=== PATIENT | male | born 1970 | race American Indian/Alaskan Native ===

== ENCOUNTER 2018-12-01 16:24 | Emergency (ER) | payer OTHER ==
--- NOTE | 2018-12-01 16:41 | Event Note ---
ED Screening Note Date of service: 12/01/18 Time: 16:38 ED Screening Note: 48 y/o male comes in for chest pain. Was admitted last year for chest pain. Never followed up a specialist. Did not discuss with his pcp. Hx/o dm, This initial assessment/diagnostic orders/clinical plan/treatment(s) is/are subject to change based on patients health status, clinical progression and re- assessment by fellow clinical providers in the ED. Further treatment and workup at subsequent clinical providers discretion. Patient/guardian urged not to elope from the ED as their condition may be serious if not clinically assessed and managed. Initial orders include:
[2018-12-01 17:06] LABS: Basophils # (Auto) 0.1 K/mm3 (0.0-0.1); Basophils % (Auto) 0.5 % (0.0-1.8); Eosinophils # (Auto) 0.1 K/mm3 (0.0-0.4); Hematocrit 44.5 % (35.5-45.6); Hemoglobin 14.8 gm/dl (11.8-15.2); Lymphocytes # (Auto) 3.9 K/mm3 (1.2-5.4); Lymphocytes % (Auto) 36.3 % (13.4-35.0); Mean Corpuscular HGB Conc 33 % (32-34); Mean Corpuscular Volume 85 fl (84-94); Monocytes # (Auto) 0.8 K/mm3 (0.0-0.8); Monocytes % (Auto) 7.7 % (0.0-7.3); Platelet Count 337 K/mm3 (140-440); Red Blood Count 5.26 M/mm3 (3.65-5.03); Red Cell Distribution Width 13.2 % (13.2-15.2)
[2018-12-01 17:27] LABS: Alanine Aminotransferase 15 units/L (7-56); Albumin 4.5 g/dL (3.9-5); BUN/Creatinine Ratio 17; Blood Urea Nitrogen 20 mg/dL (9-20); Hemolysis Index 6
--- NOTE | 2018-12-01 17:29 | XRay Report ---
PROCEDURE: XR CHEST ROUTINE 2V TECHNIQUE: PA and lateral chest radiographs were obtained. HISTORY: chest pain. COMPARISONS: None. FINDINGS: Heart: Normal. Mediastinum/Vessels: Normal. Lungs/Pleural space: Normal. Bony thorax: No acute osseous abnormality. IMPRESSION: Normal examination. This document is electronically signed by Shai Heller MD., December 01 2018 05:26:57 PM ET
[2018-12-01] MEDS ORDERED: LIDOCAINE VISCOUS 2% PO ONE (19:46)
[2018-12-01] MEDS ORDERED: ALUM-MAG HYDROX-SIMETH 200-200-20MG/5ML PO ONE (19:46)
--- NOTE | 2018-12-01 20:11 | Emergency Department Report ---
ED Chest Pain HPI - General Chief Complaint: Chest Pain Stated Complaint: CHEST PAIN Time Seen by Provider: 12/01/18 19:01 Source: patient Mode of arrival: Ambulatory Limitations: No Limitations - History of Present Illness Initial Comments: Patient is a 48-year-old male presents to the emergency room with complaints of left-sided chest pain that began a few months ago. He describes the pain as a burning and a pressure. He denies any nausea, vomiting, shortness of breath, lower extremity edema, recent travel by car or plane, recent surgery, recent immobilization. He states he has had acid reflux in the past. He states it is worse when he lays down and when bending over. He states it is also worse with lifting. He states he has been doing more pushups and did approximately 100 pushups yesterday morning. He states he stopped smoking cigarettes in 2008 occasionally smokes cigars occasionally drinks alcohol he denies any drug use. He states he had a normal stress test and echo in December 2017. Past medical history of diabetes. He denies any cardiac history. - Related Data Previous Rx's Medication Instructions Recorded Last Taken Type Famotidine [Pepcid] 20 mg PO BID #60 tablet 12/01/18 Unknown Rx Naproxen [EC-Naprosyn] 500 mg PO BID PRN #20 tablet. 12/01/18 Unknown Rx Allergies Allergy/AdvReac Type Severity Reaction Status Date / Time No Known Allergies Allergy Unverified 12/01/18 16:25 Heart Score - HEART Score History: Slightly suspicious EKG: Normal Age: < 45 Risk factors: 1-2 risk factors Troponin: < normal limit HEART Score: 1 ED Review of Systems ROS: Stated complaint: CHEST PAIN Other details as noted in HPI Comment: All other systems reviewed and negative ED Past Medical Hx - Past Medical History Hx Diabetes: Yes - Surgical History Past Surgical History?: No - Social History Smoking Status: Never Smoker Substance Use Type: Alcohol - Medications Home Medications: Home Medications Medication Instructions Recorded Confirmed Last Taken Type Famotidine [Pepcid] 20 mg PO BID #60 tablet 12/01/18 Unknown Rx Naproxen [EC-Naprosyn] 500 mg PO BID PRN #20 tablet. 12/01/18 Unknown Rx ED Physical Exam - General Limitations: No Limitations General appearance: alert, in no apparent distress - Head Head exam: Present: atraumatic, normocephalic - Eye Eye exam: Present: normal appearance, PERRL - ENT ENT exam: Present: mucous membranes moist - Respiratory Respiratory exam: Present: normal lung sounds bilaterally, chest wall tenderness (reproducible left anterior chest wall TTP). Absent: respiratory distress, wheezes, rales, rhonchi, stridor, accessory muscle use, decreased breath sounds, prolonged expiratory - Cardiovascular Cardiovascular Exam: Present: regular rate, normal rhythm, normal heart sounds. Absent: systolic murmur, diastolic murmur, rubs, gallop - Neurological Exam Neurological exam: Present: alert, oriented X3 - Psychiatric Psychiatric exam: Present: normal affect, normal mood - Skin Skin exam: Present: warm, dry, intact ED Course Vital Signs 12/01/18 12/01/18 16:37 21:03 Temperature 98.4 F 97.6 F Pulse Rate 100 H 76 Respiratory 20 15 Rate Blood Pressure 136/86 Blood Pressure 117/89 [Left] O2 Sat by Pulse 98 95 Oximetry MIKEY score - Mikey Score Age > 65: (0) No Aspirin use within the Past 7 Days: (0) No 3 or more CAD Risk Factors: (0) No 2 or more Angina events in past 24 hrs: (0) No Known CAD with more than 50% Stenosis: (0) No Elevated Cardiac Markers: (0) No ST Deviation Greater than 0.5mm: (0) No MKIEY Score: 0 ED Medical Decision Making - Lab Data Result diagrams: 12/01/18 16:50 12/01/18 16:50 Lab Results 12/01/18 12/01/18 12/01/18 Range/Units 16:50 16:50 20:00 WBC 10.7 (4.5-11.0) K/mm3 RBC 5.26 H (3.65-5.03) M/mm3 Hgb 14.8 (11.8-15.2) gm/dl Hct 44.5 (35.5-45.6) % MCV 85 (84-94) fl MCH 28 (28-32) pg MCHC 33 (32-34) % RDW 13.2 (13.2-15.2) % Plt Count 337 (140-440) K/mm3 Lymph % (Auto) 36.3 H (13.4-35.0) % Coles % (Auto) 7.7 H (0.0-7.3) % Eos % (Auto) 1.0 (0.0-4.3) % Baso % (Auto) 0.5 (0.0-1.8) % Lymph # 3.9 (1.2-5.4) K/mm3 Coles # 0.8 (0.0-0.8) K/mm3 Eos # 0.1 (0.0-0.4) K/mm3 Baso # 0.1 (0.0-0.1) K/mm3 Seg Neutrophils % 54.5 (40.0-70.0) % Seg Neutrophils # 5.8 (1.8-7.7) K/mm3 D-Dimer 184.25 (0-234) ng/mlDDU Sodium 139 (137-145) mmol/L Potassium 3.9 (3.6-5.0) mmol/L Chloride 99.8 (98-107) mmol/L Carbon Dioxide 27 (22-30) mmol/L Anion Gap 16 mmol/L BUN 20 (9-20) mg/dL Creatinine 1.2 (0.8-1.5) mg/dL Estimated GFR > 60 ml/min BUN/Creatinine Ratio 17 % Glucose 107 H (75-100) mg/dL Calcium 9.0 (8.4-10.2) mg/dL Total Bilirubin 0.40 (0.1-1.2) mg/dL AST 14 (5-40) units/L ALT 15 (7-56) units/L Alkaline Phosphatase 69 (35-129) units/L Troponin T < 0.010 (0.00-0.029) ng/mL Total Protein 7.9 (6.3-8.2) g/dL Albumin 4.5 (3.9-5) g/dL Albumin/Globulin Ratio 1.3 % 12/01/18 Range/Units 20:00 WBC (4.5-11.0) K/mm3 RBC (3.65-5.03) M/mm3 Hgb (11.8-15.2) gm/dl Hct (35.5-45.6) % MCV (84-94) fl MCH (28-32) pg MCHC (32-34) % RDW (13.2-15.2) % Plt Count (140-440) K/mm3 Lymph % (Auto) (13.4-35.0) % Coles % (Auto) (0.0-7.3) % Eos % (Auto) (0.0-4.3) % Baso % (Auto) (0.0-1.8) % Lymph # (1.2-5.4) K/mm3 Coles # (0.0-0.8) K/mm3 Eos # (0.0-0.4) K/mm3 Baso # (0.0-0.1) K/mm3 Seg Neutrophils % (40.0-70.0) % Seg Neutrophils # (1.8-7.7) K/mm3 D-Dimer (0-234) ng/mlDDU Sodium (137-145) mmol/L Potassium (3.6-5.0) mmol/L Chloride (98-107) mmol/L Carbon Dioxide (22-30) mmol/L Anion Gap mmol/L BUN (9-20) mg/dL Creatinine (0.8-1.5) mg/dL Estimated GFR ml/min BUN/Creatinine Ratio % Glucose (75-100) mg/dL Calcium (8.4-10.2) mg/dL Total Bilirubin (0.1-1.2) mg/dL AST (5-40) units/L ALT (7-56) units/L Alkaline Phosphatase (35-129) units/L Troponin T < 0.010 (0.00-0.029) ng/mL Total Protein (6.3-8.2) g/dL Albumin (3.9-5) g/dL Albumin/Globulin Ratio % Vital Signs 12/01/18 12/01/18 16:37 21:03 Temperature 98.4 F 97.6 F Pulse Rate 100 H 76 Respiratory 20 15 Rate Blood Pressure 136/86 Blood Pressure 117/89 [Left] O2 Sat by Pulse 98 95 Oximetry - EKG Data EKG shows normal: sinus rhythm, axis, intervals, QRS complexes, ST-T waves Rate: tachycardia (101) - Radiology Data Radiology results: report reviewed - Medical Decision Making Patient is a 48-year-old male presents to the emergency room with complaints of left-sided chest pain that began a few months ago. He describes the pain as a burning and a pressure. He denies any nausea, vomiting, shortness of breath, lower extremity edema, recent travel by car or plane, recent surgery, recent immobilization. He states he has had acid reflux in the past. He states it is worse when he lays down and when bending over. He states it is also worse with lifting. He states he has been doing more pushups and did approximately 100 pushups yesterday morning. He states he stopped smoking cigarettes in 2008 occasionally smokes cigars occasionally drinks alcohol he denies any drug use. He states he had a normal stress test and echo in December 2017. Past medical history of diabetes. He denies any cardiac history. VSS. on exam: reproducible left anterior chest wall TTP. pt given GI cocktail in the ED and states sx improved. labs WNL. trop negative x2. d-dimer is negative. PERC criteria negative. EKG with sinus tach at 101 otherwise normal. CXR with no acute process. given reproducible chest wall pain and improvement of symptoms with GI cocktail chest discomfort most likely due to a costochrondritis/GERD. MIKEY score and heart score are both negative, pt with recent stress test and echo last year which were normal per pt, unlikely to be cardiac in nature. pt given prescription for pepcid and anti-inflammatory. advised to please take medication as prescribed. May use ice, rest, stretching. Follow up a primary care doctor in the next 2-3 days. Return to the emergency room for any new or worsening symptoms. - Differential Diagnosis ACS, GERD, costochrondritis, PTX, PE Critical care attestation.: If time is entered above; I have spent that time in minutes in the direct care of this critically ill patient, excluding procedure time. ED Disposition Clinical Impression: Chest wall pain Chest pain Qualifiers: Chest pain type: unspecified Qualified Code(s): R07.9 - Chest pain, unspecified GERD (gastroesophageal reflux disease) Qualifiers: Esophagitis presence: without esophagitis Qualified Code(s): K21.9 - Gastro- esophageal reflux disease without esophagitis Disposition: TO HOME OR SELFCARE Is pt being admited?: No Does the pt Need Aspirin: No Condition: Stable Instructions: Chest Pain (ED), Diet for Ulcers and Gastritis (ED), Costochondritis (ED), Gastroesophageal Reflux Disease (ED) Additional Instructions: Please take medication as prescribed. May use ice, rest, stretching. Follow up a primary care doctor in the next 2-3 days. Return to the emergency room for any new or worsening symptoms. Prescriptions: Naproxen [EC-Naprosyn] 500 mg PO BID PRN #20 tablet.dr CABRERA Reason: Pain, Moderate (4-6) Famotidine [Pepcid] 20 mg PO BID #60 tablet Referrals: MIKEL DE LA CRUZ [Primary Care Provider] - 2-3 Days Time of Disposition: 20:50 Print Language: WELSH
[2018-12-01] MEDS ORDERED: BENTYL PO ONE ×2 (20:30)
[2018-12-01 21:04] VITALS: BP 117/89
== END 2018-12-01 21:02 | disposition home or self-care (01) ==
LOC: ED 16:24
DX: R07.89 Other chest pain (principal); K21.9 Gastro-esophageal reflux disease without esophagitis; E11.9 Type 2 diabetes mellitus without complications; Z79.899 Other long term (current) drug therapy
CPT/HCPCS: 36415; 71046; 80053; 84484; 85025; 85379; 93005; 93010; 99284

== ENCOUNTER 2020-07-24 20:33 | Emergency (ER) | payer OTHER ==
[2020-07-24] MEDS ORDERED: ASPIRIN 325 MG TAB PO ONE (20:55)
[2020-07-24 21:11] LABS: Basophils % (Auto) 0.4 % (0.0-1.8); Hematocrit 46.3 % (35.5-45.6); Hemoglobin 15.3 gm/dl (11.8-15.2); Lymphocytes # (Auto) 1.6 K/mm3 (1.2-5.4); Lymphocytes % (Auto) 19.9 % (13.4-35.0); Mean Corpuscular HGB Conc 33 % (32-34); Mean Corpuscular Volume 86 fl (84-94); Monocytes # (Auto) 0.8 K/mm3 (0.0-0.8); Platelet Count 226 K/mm3 (140-440); Red Blood Count 5.37 M/mm3 (3.65-5.03); Red Cell Distribution Width 13.2 % (13.2-15.2)
[2020-07-24 21:25] LABS: BUN/Creatinine Ratio 16; Blood Urea Nitrogen 19 mg/dL (9-20); Calcium 8.2 mg/dL (8.4-10.2); Hemolysis Index 10
[2020-07-24 21:27] LABS: Alanine Aminotransferase 17 units/L (7-56); Albumin 4.2 g/dL (3.9-5); Bilirubin,Direct < 0.2 mg/dL (0-0.2)
--- NOTE | 2020-07-24 22:08 | XRay Report ---
CHEST 2 VIEWS INDICATION / CLINICAL INFORMATION: Chest Pain. COMPARISON: 12/01/2018 FINDINGS: SUPPORT DEVICES: None. HEART / MEDIASTINUM: No significant abnormality. LUNGS / PLEURA: No significant pulmonary or pleural abnormality. .No pneumothorax. ADDITIONAL FINDINGS: No significant additional findings. IMPRESSION: 1. No acute findings. Signer Name: Robinson Collins MD Signed: 07/24/2020 10:03 PM Workstation Name: [id number]
[2020-07-24] MEDS ORDERED: ACETAMINOPHEN 325 MG TAB PO ONE (22:22)
[2020-07-24] MEDS ORDERED: dexAMETHasone 20 MG/5 ML VIAL IM ONE (22:24)
--- NOTE | 2020-07-24 22:40 | Emergency Department Report ---
- General Chief Complaint: Chest Pain Stated Complaint: CHEST TIGHTNESS;FEVER Time Seen by Provider: 07/24/20 22:16 Source: patient Mode of arrival: Ambulatory Limitations: No Limitations - History of Present Illness Initial Comments: Patient is a 50-year-old male with a past medical history of hypertension diabetes who is presenting with 3 days of cough and soreness in the chest when coughing. States he has had a fever as well. He denies body aches nausea vomiting diarrhea. Patient states he has no known exposures to COVID-19. Patient states when he walks he is not extremely short of breath. - Related Data Previous Rx's Medication Instructions Recorded Last Taken Type Famotidine [Pepcid] 20 mg PO BID #60 tablet 12/01/18 Unknown Rx Naproxen [EC-Naprosyn] 500 mg PO BID PRN #20 tablet. 12/01/18 Unknown Rx Albuterol Mdi (or & Nicu Only) 2 puff IH QID PRN #1 inhalation 07/24/20 Unknown Rx [ProAir HFA Inhaler] Benzonatate [Tessalon Perles] 100 mg PO Q8HR #10 capsule 07/24/20 Unknown Rx Brompheniramine/Pseudoephed/Dm 5 ml PO Q6HR PRN #100 syrup 07/24/20 Unknown Rx [Bromfed Dm Cough Syrup] Allergies Allergy/AdvReac Type Severity Reaction Status Date / Time No Known Allergies Allergy Unverified 12/01/18 16:25 ED Review of Systems ROS: Stated complaint: CHEST TIGHTNESS;FEVER Other details as noted in HPI Comment: All other systems reviewed and negative ED Past Medical Hx - Past Medical History Previous Medical History?: Yes Hx Diabetes: Yes - Surgical History Past Surgical History?: No - Social History Smoking Status: Never Smoker Substance Use Type: None - Medications Home Medications: Home Medications Medication Instructions Recorded Confirmed Last Taken Type Famotidine [Pepcid] 20 mg PO BID #60 tablet 12/01/18 Unknown Rx Naproxen [EC-Naprosyn] 500 mg PO BID PRN #20 tablet. 12/01/18 Unknown Rx Albuterol Mdi (or & Nicu Only) 2 puff IH QID PRN #1 inhalation 07/24/20 Unknown Rx [ProAir HFA Inhaler] Benzonatate [Tessalon Perles] 100 mg PO Q8HR #10 capsule 07/24/20 Unknown Rx Brompheniramine/Pseudoephed/Dm 5 ml PO Q6HR PRN #100 syrup 07/24/20 Unknown Rx [Bromfed Dm Cough Syrup] ED Physical Exam - General Limitations: No Limitations General appearance: alert, in no apparent distress - Head Head exam: Present: atraumatic, normocephalic - Eye Eye exam: Present: normal appearance - ENT ENT exam: Present: mucous membranes moist - Neck Neck exam: Present: normal inspection - Respiratory Respiratory exam: Present: normal lung sounds bilaterally. Absent: respiratory distress, wheezes, rales, rhonchi - Cardiovascular Cardiovascular Exam: Present: normal rhythm, tachycardia. Absent: systolic murmur, diastolic murmur, rubs, gallop - GI/Abdominal GI/Abdominal exam: Present: soft, normal bowel sounds - Rectal Rectal exam: Present: deferred - Extremities Exam Extremities exam: Present: normal inspection - Back Exam Back exam: Present: normal inspection - Neurological Exam Neurological exam: Present: alert, oriented X3 - Psychiatric Psychiatric exam: Present: normal affect, normal mood - Skin Skin exam: Present: warm, dry, intact, normal color. Absent: rash ED Course Vital Signs 07/24/20 20:45 Temperature 100.4 F H Pulse Rate 117 H Respiratory 18 Rate Blood Pressure 131/84 O2 Sat by Pulse 96 Oximetry ED Medical Decision Making - Lab Data Result diagrams: 07/24/20 21:01 07/24/20 21:01 Lab Results 07/24/20 07/24/20 07/24/20 Range/Units 21:01 21:01 21:01 WBC 8.2 (4.5-11.0) K/mm3 RBC 5.37 H (3.65-5.03) M/mm3 Hgb 15.3 H (11.8-15.2) gm/dl Hct 46.3 H (35.5-45.6) % MCV 86 (84-94) fl MCH 29 (28-32) pg MCHC 33 (32-34) % RDW 13.2 (13.2-15.2) % Plt Count 226 (140-440) K/mm3 Lymph % (Auto) 19.9 (13.4-35.0) % Wayne % (Auto) 10.0 H (0.0-7.3) % Eos % (Auto) 0.0 (0.0-4.3) % Baso % (Auto) 0.4 (0.0-1.8) % Lymph # (Auto) 1.6 (1.2-5.4) K/mm3 Wayne # (Auto) 0.8 (0.0-0.8) K/mm3 Eos # (Auto) 0.0 (0.0-0.4) K/mm3 Baso # (Auto) 0.0 (0.0-0.1) K/mm3 Seg Neutrophils % 69.7 (40.0-70.0) % Seg Neutrophils # 5.7 (1.8-7.7) K/mm3 Sodium 134 L (137-145) mmol/L Potassium 4.2 (3.6-5.0) mmol/L Chloride 98.9 (98-107) mmol/L Carbon Dioxide 27 (22-30) mmol/L Anion Gap 12 mmol/L BUN 19 (9-20) mg/dL Creatinine 1.2 (0.8-1.3) mg/dL Estimated GFR > 60 ml/min BUN/Creatinine Ratio 16 % Glucose 122 H (75-100) mg/dL Calcium 8.2 L (8.4-10.2) mg/dL Total Bilirubin 0.30 (0.1-1.2) mg/dL Direct Bilirubin < 0.2 (0-0.2) mg/dL Indirect Bilirubin 0.1 mg/dL AST 22 (5-40) units/L ALT 17 (7-56) units/L Alkaline Phosphatase 61 (35-129) units/L Troponin T < 0.010 (0.00-0.029) ng/mL Total Protein 7.5 (6.3-8.2) g/dL Albumin 4.2 (3.9-5) g/dL Albumin/Globulin Ratio 1.3 % - EKG Data -: EKG Interpreted by Or EKG shows normal: sinus rhythm, axis, intervals, QRS complexes, ST-T waves Rate: tachycardia - Radiology Data Chest x-ray shows no infiltrate or other abnormality - Medical Decision Making Patient likely has COVID-19 given the recent COVID-19 pandemic. Is been suggested to the patient that he obtain outpatient testing for COVID-19. Patient given a shot of Decadron since he states his blood glucose is well contr olled. Patient is discharged with medication for symptomatic relief. Critical care attestation.: If time is entered above; I have spent that time in minutes in the direct care of this critically ill patient, excluding procedure time. ED Disposition Clinical Impression: Suspected COVID-19 virus infection Acute bronchitis Qualifiers: Bronchitis organism: unspecified organism Qualified Code(s): J20.9 - Acute bronchitis, unspecified Disposition: DC-01 TO HOME OR SELFCARE Is pt being admited?: No Does the pt Need Aspirin: No Condition: Stable Instructions: Acute Bronchitis (ED), Acute Bronchitis, Adult, [id number] Additional Instructions: Please obtain a portable pulse oximeter for home use. These calls between $25 and $35 and can help you know if your oxygen levels in your blood have dropped to unsafe level. Please return to the emergency department if your levels drop below 90% at rest Referrals: PRIMARY CARE [Primary Care Provider] - 3-5 Days Time of Disposition: 22:39
[2020-07-24 23:01] VITALS: BP 115/82
== END 2020-07-24 23:00 | disposition home or self-care (01) ==
LOC: ED 20:33
DX: J20.9 Acute bronchitis, unspecified (principal); Z20.822 Contact with and (suspected) exposure to COVID-19; I10 Essential (primary) hypertension; E11.9 Type 2 diabetes mellitus without complications; Z79.899 Other long term (current) drug therapy
CPT/HCPCS: 36415; 71046; 80048; 80076; 84484; 85025; 93005; 96372; 99284; J1100